=== PATIENT | female | born 1970 | race Two or more races ===

== ENCOUNTER 2017-09-15 18:29 | Emergency (ER) | payer OTHER ==
[~2017-09-15] VITALS: Ht 152.4 cm; Wt 63.0 kg
[2017-09-15] MEDS ORDERED: NATURE-THROI16.25 MG (18:51)
== END 2017-09-15 22:13 | disposition home or self-care (01) ==
LOC: ER 18:29 → CPU-OBS 18:42 → ER 18:42
DX: R42 Dizziness and giddiness (principal); R00.1 Bradycardia, unspecified; E03.8 Other specified hypothyroidism
CPT/HCPCS: G0378; G0379; 93005

== ENCOUNTER → 2017-09-27 | Emergency (ER) | payer OTHER ==
[~2017-09-27] VITALS: Ht 152.4 cm; Wt 63.5 kg
[~2017-09-27] MED LIST: NATURE-THROI16.25 MG; NATURE-THROID130 MG
== END | disposition home or self-care (01) ==
LOC: ER 08:03
DX: N20.1 Calculus of ureter (principal)